=== PATIENT | female | born 1950 | race Caucasian/White ===

== ENCOUNTER 2017-09-04 10:24 | Emergency (ER) | payer OTHER ==
[2017-09-04] MEDS: HYDROCODONE/APAP (5/325) TAB PO (11:05)
[2017-09-04] MEDS: KETOROLAC 15 MG INJ IM (11:05)
== END 2017-09-04 13:33 | disposition home or self-care (01) ==
LOC: FTE 13:33
DX: M25.562 Pain in left knee (principal); E11.9 Type 2 diabetes mellitus without complications
CPT/HCPCS: 29505; 73562; 96372; 99284-25